=== PATIENT | female | born 1985 | race Caucasian/White ===

== ENCOUNTER 2016-10-04 05:09 | Inpatient (IN) | payer OTHER ==
--- NOTE | 2016-10-03 19:26 | PDOC1 ---
- HPI 30 year old at 39 0/7 weeks gestational age by 15-week ultrasound who desires repeat LTCS for means of delivery due to history of prior LTCS. She presents for assessment and review of history in anticipation of her upcoming surgery. Today patient denies any changes in health. Her course has been followed for the following problem list. - Problem List (1) with 39 completed weeks gestation Status: Acute (2) Admission for sterilization Status: Acute (3) Previous delivery affecting , antepartum Status: Acute SOCIAL HISTORY: Marital status: , FOB involved: yes, No Tobacco, alcohol use, or drug use. FAMILY HISTORY: No congenital abnormalities or twins. - Labs & Studies LABS: Blood Type B positive, Antibody [NEG], Rubella [Immune], RPR-[Negative], HbsAg-[Negative], HIV-[Negative] Pap neg, GC/Chlamydia-[Negative], UA-[Negative], 1 hr GTT-112, GBS-positive REVIEW OF DATES: LMP 01/15/16-> AVIVA 10/20/16 Ultrasound on 04/20/16 @ 15 1/7 WGA -> EDC 10/11/16 Ultrasound on 06/06/16 @ 21 4/ WGA -> EDC 10/13/16 - Review of Systems neg - Physical Exam General: Afebrile, No Acute Distress Psych/Mental Status: Mood/Affect Appropriate Neurological: Alert, Oriented x 4, Normal Speech HEENT: Atraumatic, PERRLA, EOMI, Mucous membr. moist/pink Lungs: Clear to Auscultation Bilaterally Cardiovascular: Regular Rate and Rhythm, No Murmur Abdomen: Normal Bowel Sounds Genitourinary: Normal Female Genitalia Rectal Exam: Deferred Extremities: Full ROM Deep Tendon Reflexes: Patellar (L): 2+ (Brisk, Normal), Patellar (R): 2+ (Brisk , Normal) Skin: Normal Color, Warm, Dry, Intact, No Rash - Assessment & Plan 21 y/o at 39 0/7 weeks by US who will present for schedule repeat LTCS and bilateral tubaligation. Discussed with patient the risks of and tubaligation including infection, bleeding possibly requiring blood transfusion and even hysterectomy, damage to underlying structures including bowel, bladder, uterus, tubes, ovaries , baby, and ureter, as well as will have a scar and can have persistent pain and numbness at incision site. The patient agrees to proceed with LTCS with BTL and will arrive at scheduled time for preop. She was advised to avoid any food or drink 8 hours prior to scheduled surgery.
[2016-10-04] MEDS ORDERED: CEFAZOLIN SODIUM 2 GRAM DUPLEX 2 G in Premix (D5W) 50 ml 1 EACH IV PRN (05:21)
[2016-10-04] MEDS ORDERED: IV START KIT ONE (05:43)
[2016-10-04] MEDS ORDERED: SODIUM CHLORIDE 0.9% FLUSH 10 ML ONE (05:43)
[2016-10-04 05:47] LABS: HEMATOCRIT 35.3 % (37.0-47.0); HEMOGLOBIN 12.2 gm/l (12.0-16.0); MEAN CELL VOLUME 98.6 fl (81.0-99.0); MEAN CORPUSCULAR HEMOGLOBIN 34.1 pg (27.0-31.0); MEAN CORPUSCULAR HGB CONC 34.6 g/dl (33.0-37.0); RED CELL DISTRIBUTION WIDTH 11.8 % (11.5-14.5)
[2016-10-04] MEDS: LACTATED RINGERS 1,000 ML IV SCH ×2 (05:55→07:18)
[2016-10-04 06:16] VITALS: BMI 28.3
[2016-10-04] MEDS ORDERED: CEFAZOLIN SODIUM 2 GRAM DUPLEX 50 ML IV ONE (06:39)
[2016-10-04] MEDS ORDERED: EPIDURAL PROCEDURE TRAY ONE (07:17)
[2016-10-04] MEDS ORDERED: BUPIVACAINE 0.75% SPINAL AMPUL 2 ML ONE (07:21)
[2016-10-04] MEDS ORDERED: FENTANYL 100 MCG/2 ML VIAL ONE (07:21)
[2016-10-04] MEDS ORDERED: MORPHINE SULFATE (DURAMORPH) 1 MG/ML 10ML AMP ONE (07:21)
[2016-10-04] MEDS ORDERED: SCOPOLAMINE 1.5 MG/72 HR 1 EACH PATCH TD ONE (07:30)
[2016-10-04] MEDS ORDERED: EPHEDRINE SULFATE UD SYR 25 MG 25 MG/5 ML SYRINGE IV ONE ×2 (07:39→07:41)
[2016-10-04] MEDS ORDERED: OXYTOCIN 10 UNITS/ML VIAL ONE ×3 (07:50→08:42)
[2016-10-04] MEDS ORDERED: PHENYLEPHRINE 10 MG/1 ML (1%) VIAL ONE (07:50)
[2016-10-04] MEDS ORDERED: ONDANSETRON 4 MG/2ML 2 ML VIAL ONE (07:50)
[2016-10-04] MEDS ORDERED: NALOXONE HCL 0.4 MG/ML VIAL IV PRN (08:15)
[2016-10-04] MEDS ORDERED: NALBUPHINE HCL 20 MG/ML AMP IV PRN (08:15)
[2016-10-04] MEDS ORDERED: ONDANSETRON 4 MG/2ML 2 ML VIAL IV PRN ×2 (08:15→09:29)
[2016-10-04] MEDS ORDERED: PROMETHAZINE HCL 25 MG/ML VIAL IM PRN (08:15)
[2016-10-04] MEDS ORDERED: DIPHENHYDRAMINE HCL 50 MG/1 ML VIAL IV PRN ×2 (08:15→09:29)
[2016-10-04] MEDS ORDERED: HYDROMORPHONE HCL 1 MG/ML SYRINGE IV PRN (08:15)
[2016-10-04] MEDS ORDERED: EPHEDRINE SULFATE 50 MG/ML 1ML VIAL IV PRN (08:15)
[2016-10-04] MEDS ORDERED: HYDROMORPHONE HCL 2 MG/ML SYRINGE IV PRN (08:15)
--- NOTE | 2016-10-04 09:14 | PCMBPN ---
Brief Post Op Note: Date of Procedure: 10/04/16 Start Time: 07 Preoperative Diagnosis: 1. 39 week 2. Desires repeat and permanent sterilization Postoperative Diagnosis: 1. [Same] Procedure: Repeat low transverse section and bilateral tubaligation Surgeon: Candy Ventrua MD Assist: Pancho Han Anesthesia: spinal Findings: viable female infant, normal maternal anatomy Condition: stable Complications: none IV Fluids: 1000 mLs of LR Urine Output: 125 mLs Estimated Blood Loss: 400 mLs Tourniquet Time: [N/A] Specimens: [N/A] Implants: N/A Drains: [N/A]
[2016-10-04] MEDS ORDERED: LANOLIN 50 APPLIC/7G TUBE TP PRN (09:29)
[2016-10-04] MEDS ORDERED: KETOROLAC TROMETHAMINE 30 MG/ML 1 ML VIAL IV PRN (09:29)
[2016-10-04] MEDS ORDERED: DIPHENHYDRAMINE HCL 25 MG CAPSULE PO PRN (09:29)
--- NOTE | 2016-10-04 09:34 | PDOC37 ---
Procedure: Repeat Low Transverse Section and Bilateral Tubaligation Date of Procedure: 10/04/16 Start Time: 746 Preoperative Diagnosis: 1. 39 week intrauterine . 2. Desired repeat and permanent sterilization Postoperative Diagnosis: Same Surgeon: Candy Ventura MD Assist: Pancho Berg MD Indication for Procedure: 30 year old, at 39 weeks 0 days presented for repeat LTCS and BTL Anesthesia: Spinal with Duramorph Complications: None Estimated Blood Loss: 400 mLs IV Fluids: 1000 mLs of LR Medications: 2 gm of Ancef for routine prophylaxis. 20 units of Pitocin. Urine Output: 125 mLs of clear urine Findings: Fluid clear. Normal uterus, ovaries, and tubes. Procedure: The patient was taken to the operating room where spinal anesthesia was found to be adequate. She was then prepared and draped in the normal sterile fashion in the dorsal supine position with a leftward tilt. A timeout was performed. A Pfannensteil skin incision was then made with the scalpel and carried through to the underlying layer of fascia with the scalpel. The fascia was incised in the midline and the incision extended laterally with the Mitchell scissors. The superior aspect of the fascial incision was then grasped with the Jessica clamps, elevated, and the underlying rectus muscles dissected off bluntly and sharply where needed. Attention was then turned to the inferior aspect of the incision which, in a similar fashion, was grasped, tented up with the Jessica clamps, and the rectus muscle dissected off bluntly and sharply with Mitchell scissors. The rectus muscles were then in the midline, and the peritoneum was identified and entered bluntly. The peritoneal incision was then extended with good visualization of the bladder. The Gio retractor was then inserted and the vesicouterine peritoneum identified, grasped with pick-ups and entered sharply with the Metzenbaum scissors. The incision was then extended laterally and the bladder flap created digitally. The lower uterine segment incised in a transverse fashion with the scalpel. The uterine incision was then extended laterally by pulling superolaterally on both sides. Membranes were ruptured and fluid was clear. The 's head was flexed out of occipitoanterior position and delivered atraumatically. The nose and mouth were suctioned with bulb suction and the cord was clamped and cut after 1 1/2 minute delay. The was handed off to the waiting catering staff member. The placenta was then delivered after manual separation with gentle cord traction. The uterus was then exteriorized and cleared of all clots and debris. The uterine incision was repaired with 0 vicryl in a running, locked fashion. A second layer of the same suture was used in an imbricating fashion to obtain excellent hemostasis. Bilateral tubal ligation: Attention was then turned to the patient's bilateral tubal ligation. A [place] was used to berry picker the left fallopian tube and a Modified Angelito-type of tubal ligation was performed using Vicryl suture, ligating each tube. The midportion was then excised and submitted for pathology. The same procedure was done on the opposite side. Hemostasis of stumps was excellent. The gutters were cleared of all clots. The uterus was returned to the abdomen. The peritoneum was closed with Vicryl The fascia was reapproximated with 0 Vicryl in a running fashion. The skin was closed with thiago. The patient tolerated the procedure well. Sponge, lap and needle counts were correct times three. A debriefing was held at the end of the procedure with anesthesia and nursing staff. The patient was taken to the recovery room in stable condition. Mother and infant stable and she delivered a viable female infant.
[2016-10-04] MEDS ORDERED: LACTATED RINGERS 1,000 ML ONE (15:21)
[2016-10-04] MEDS: OXYCODONE/ACETAMINOPHEN 5/325 MG TABLET PO PRN ×3 (15:35→22:57)
[2016-10-04] MEDS: IBUPROFEN 800 MG TABLET PO PRN (20:00)
[2016-10-04] MEDS: DOCUSATE SODIUM 100 MG CAPSULE PO SCH (22:57)
[2016-10-05] MEDS: IBUPROFEN 800 MG TABLET PO PRN ×3 (03:28→16:30)
[2016-10-05] MEDS: OXYCODONE/ACETAMINOPHEN 5/325 MG TABLET PO PRN ×3 (03:28→23:20)
[2016-10-05 07:03] LABS: HEMATOCRIT 30.3 % (37.0-47.0); HEMOGLOBIN 10.5 gm/l (12.0-16.0)
[2016-10-05] MEDS: OXYCODONE HCL 5 MG TABLET PO PRN ×3 (07:53→16:30)
[2016-10-05] MEDS: DOCUSATE SODIUM 100 MG CAPSULE PO SCH (07:54)
[2016-10-05] MEDS: PRENATAL VIT/FE FUMARATE/FA 1 TABLET PO SCH (07:54)
[2016-10-05] MEDS ORDERED: PRENATAL VIT PO SCH (09:00)
[2016-10-05] MEDS ORDERED: IRON FUMARATE PO SCH (09:00)
[2016-10-05] MEDS ORDERED: [UNRECOGNIZED DRUG - OTHER] PO SCH (09:00)
[2016-10-06] MEDS: DOCUSATE SODIUM 100 MG CAPSULE PO SCH ×3 (02:13→10:13)
[2016-10-06] MEDS: OXYCODONE/ACETAMINOPHEN 5/325 MG TABLET PO PRN ×2 (05:13→10:14)
[2016-10-06] MEDS: IBUPROFEN 800 MG TABLET PO PRN (05:13)
[2016-10-06] MEDS: PRENATAL VIT/FE FUMARATE/FA 1 TABLET PO SCH ×2 (07:07→14:03)
[2016-10-06 07:54] VITALS: BP 120/75
[2016-10-06] MEDS: KETOROLAC TROMETHAMINE 30 MG/ML 1 ML VIAL IV SCH (09:13)
--- NOTE | 2016-10-06 11:09 | SURGPATH ---
[facility] [address] [place] [id number] Patient Name: AYLIN CASTILLO MR#: [id number] : 1985 Gender: F Specimen #: [id number] Collected: 10/04/2016 Received: 10/05/2016 Reported: 10/06/2016 Submitting Phys: NAHED ALMENDAREZ Copy To Phys: [facility] Clinical History / Pre-Operative Diagnosis: None provided Specimen Source / Surgical Procedure Performed: Right fallopian tube (with stitch), left fallopian tube-repeat section with bilateral tubal ligation Interpretation: LEFT AND RIGHT FALLOPIAN TUBE, TUBAL LIGATION: - COMPLETE CROSS-SECTION OF BILATERAL FALLOPIAN TUBES Electronically Signed Out Michael Lee M.D. Gross Description: The specimen is received in a formalin filled container labeled with the patient's name. Two cylindrical segments of estrada tissue are 1.5 x 0.6 cm and 2.3 x 0.6 cm. The shorter segment has an attached suture and is inked black. A mechanical service representative cross section of each is submitted in one cassette. Jim Samuel Microscopic Description: Microscopic performed. 1: 591942 Z30.2
--- NOTE | 2016-10-06 11:41 | PDOC44 ---
- Subjective Day: 1 (late entry for rounds 10/05/16) Reports Flatus, Reports Pain Tolerable, Reports , Reports Lochia Light, Reports Tolerating Regular Diet - Objective Temp Pulse Resp BP Pulse Ox 98.2 F 56 16 120/75 100 10/06/16 07:47 10/06/16 07:47 10/06/16 07:47 10/06/16 07:47 10/04/16 19:49 Current Medications Generic Name Dose Route Start Last Admin Trade Name Freq PRN Reason Stop Dose Admin Diphenhydramine HCl 25 - 50 mg 10/04/16 09:29 Benadryl PO Q6H PRN Itching (Mild/Moderate) Diphenhydramine HCl 25 - 50 mg 10/04/16 09:29 Benadryl IV Q6H PRN Itching (Severe) Docusate Sodium 100 mg 10/04/16 21:00 10/06/16 10:13 Colace PO 100 mg BID NESSA Administration Emollient Ointment 1 applic 10/04/16 09:29 10/06/16 11:20 [id number]-C-Tmavyl TP 1 tube PRN PRN Administration sore nipples Ibuprofen 800 mg 10/04/16 09:29 10/06/16 05:13 Motrin PO 800 mg Q6H PRN Administration Pain Multivi/Iron Carb/Fe Sulf/FA/Prenat 1 tab 10/05/16 09:00 10/06/16 07:07 Plus PO Not Given DAILY [facility] Ondansetron HCl 4 mg 10/04/16 09:29 Zofran IV Q6H PRN Nausea/Vomiting Oxycodone HCl 5 - 10 mg 10/04/16 09:29 10/05/16 16:30 Roxicodone PO 5 mg Q3H PRN Administration Pain (Severe) Oxycodone/Acetaminophen 1 - 2 tab 10/04/16 09:29 10/06/16 10:14 Percocet 5/325 PO 2 tab Q4H PRN Administration Pain (Moderate) Sodium Chloride 10 ml 10/04/16 06:04 10/05/16 05:54 Normal Saline 10ml Flush IV 10 ml PRN PRN Administration See Protocol Sodium Chloride 10 ml 10/04/16 09:00 10/06/16 07:08 Normal Saline 10ml Flush IV Not Given Q8HR NESSA - Physical Exam General: Afebrile, No Acute Distress Psych/Mental Status: Mood/Affect Appropriate, Bonding Well Neurological: Alert, Oriented x 4 HEENT: Atraumatic, PERRLA, EOMI, Mucous membr. 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
--- NOTE | 2016-10-06 12:12 | PDOC39B ---
Hospital Course: ADMIT DATE: 10/04/16 DISCHARGE DATE: 10/06/16 ADMISSION DIAGNOSES: 39 week , Desire for repeat and permanent sterilization PROCEDURES: Repeat Low Transverse Section and Bilateral Tubaligation HISTORY OF PRESENT ILLNESS: 30 year old G2 T1 L1 at 39 weeks 0 days presenting for repeat LTCS and BTL, had uncomplicated procedure. HOSPITAL COURSE: The patient had more than average drainage from the wound in the first hour after surgery but after changing dressing and applying ice and pressure the drainage subsided and she required no further dressing changes. Her post operative course was other noble unremarkable. By day of discharge the patient is ambulating, eating, voiding, and passing flatus without difficulty. Pain is controlled and lochia is appropriate. She is [] - Physical Exam Vital Signs: Temp Pulse Resp BP Pulse Ox 98.2 F 56 16 120/75 100 10/06/16 07:47 10/06/16 07:47 10/06/16 07:47 10/06/16 07:47 10/04/16 19:49 General: Afebrile, No Acute Distress Psych/Mental Status: Mood/Affect Appropriate Neurological: Grossly Intact, Alert, Oriented x 4, Normal Speech HEENT: Atraumatic, PERRLA, EOMI, Mucous membr. moist/pink Lungs: Clear to Auscultation Bilaterally Cardiovascular: Regular Rate and Rhythm, No Murmur Breast: Soft, Nipples Intact Fundus: Firm, Midline, Below Umbilicus Abdomen: Normal Bowel Sounds Genitourinary: Normal Female Genitalia Lochia: Light Extremities: Full ROM, No Edema Skin: Normal Color, Warm, Dry, Intact, No Rash Wound: Drainage (slight serous from one spot on incision), Well Approximated, [place] Intact - Discharge Diagnosis (1) delivery due to previous obstetrical trauma, delivered, current hospitalization Status: AcuteAssessment/Plan: stable, discharge home with thiago in place, steri strips also in place. Will remove thiago and replace strips at her follow up appt next week. - Discharge Plan Condition: Good Disposition: Home Instruction Forms: Section Discharge Instructions Prescriptions: Docusate Sodium [COLACE 100 MG CAPSULE (SHF)] 100 mg PO BID #20 Ibuprofen [IBUPROFEN 800 MG TABLET (SHF)] 800 mg PO Q6H PRN #30 PRN Reason: Pain Oxycodone HCl/Acetaminophen [PERCOCET 5/325 MG TABLET (SHF)] 1 - 2 tab PO Q4H PRN #50 PRN Reason: Pain (Moderate) Cholecalciferol (Vitamin D3) [Vitamin D3] 5,000 units PO DAILY #100 capsule Follow-Up: Candy Ventura MD [Primary Care Provider] - 10/11/16
== END 2016-10-06 14:02 | disposition home or self-care (01) | DRG 766 ==
LOC: FBC 05:09 → EDSTATUS 10-11 18:12
PROVIDERS: ADMIT Family Medicine; ATTEND Family Medicine
PROC: 10D00Z1 Extraction of Products of Conception, Low, Open Approach (ICD-10-PCS; principal; 2016-10-04)
PROC: 0UL70ZZ Occlusion of Bilateral Fallopian Tubes, Open Approach (ICD-10-PCS; 2016-10-04)
DX: O34.211 Maternal care for low transverse scar from previous cesarean delivery (principal); Z30.2 Encounter for sterilization; O99.824 Streptococcus B carrier state complicating childbirth; Z37.0 Single live birth; Z3A.39 39 weeks gestation of pregnancy

== ENCOUNTER 2016-10-09 13:05 | Outpatient (CLI) | payer OTHER | END 2016-10-09 13:06 | disposition home or self-care (01) | LOC: BABIESSH 13:05 | PROVIDERS: ATTEND Family Medicine | DX: Z39.1 Encounter for care and examination of lactating mother (principal) ==